=== PATIENT | female | born 1945 | race Caucasian/White ===

== ENCOUNTER 2016-07-05 07:33 | Day surgery (SDC) | payer MEDICARE, OTHER ==
[2016-06-26 12:29] LABS: HEMATOCRIT 44.7 % (36.0-48.0)
[2016-06-26 12:36] LABS: PARTIAL THROMBO TIME 25.8 SEC (22.5-37.2)
--- NOTE | ~2016-07-05 | OP ---
Record Of Operation [facility] [address] [place]. 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 PROCEDURE PERFORMED: 1. Right deep lobe parotidectomy with parapharyngeal space dissection. 2. Transposition of right cranial nerve 7. SURGEON: Ney Arroyo M.D. RESTAURANT INSPECTOR: Rickie Thompson. ANESTHESIA: General. COMPLICATIONS: None. CONDITION: Stable to recovery. 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 Risks, benefits, and alternatives to excision were explained and she agreed. PROCEDURE IN DETAIL: The patient was identified in preoperative holding and taken back to the operating room and placed supine on the operating room table. General anesthesia was established. A time-out was called, and the patient and procedure were confirmed. A Eliazar incision was marked in the right preauricular crease and infiltrated subcutaneously with 3 mL of 1% lidocaine with 1:100,000 epinephrine. The nerve monitoring electrodes were placed in the gaurav orbicularis oculi and connected to the monitor and the tap test was positive. She was prepped and draped in the standard fashion for the operation. Using 2.5x loupe magnification and headlight illumination, the operation commenced. A 15 blade was used to make the skin incision. Subcutaneous flaps were elevated over the parotid in the upper neck. The flaps were retracted with hook retractors. The great auricular nerve was identified and the posterior branch was dissected out while the tail of parotid was mobilized off the sternocleidomastoid muscle. We identified the tragal pointer superiorly and the digastric muscle inferiorly and dissected the tissues in between these two landmarks to identify the facial nerve exiting the stylomastoid foramen in its normal anatomic position. The nerve was stimulated with the probe and she had excellent response in the eye and lip. Following this, we dissected the inferior division of the parotid gland exposing the lower division along the angle of mandible. The lower division was then isolated and transposed superiorly to allow access to the parapharyngeal space. This required ligating the facial artery with two medium hemoclips. We then transected the stylomandibular ligament. This provided excellent access to the parapharyngeal space. An [employer] Record Of Operation [place] [id number] [facility] [place]. [address] NAME: HUBERT TRIPLETT : 49 STATUS : REG [facility] [place] PAT#: [id number] AGE: 70 ADM/REG DATE : 07/05/16 MR#: [id number] REPORT SERV DATE: 07/05/16 DICTATED BY: NEY ARROYO DATE: 07/05/16 REPORT STATUS : Draft TRANSCRIBED BY: ANISHA DATE: 07/05/16 retractor was placed under the angle of the mandible to elevate it and the superior aspect of the artery was retracted over the parotid gland and this was tracked into the parapharyngeal space. A combination of hemostats, suction, and Kittner elevators were used to bluntly dissect the tumor from the right parapharyngeal space. Once it was excised, it was sent for frozen section. Frozen section confirmed benign mixed tumor. The wound was then irrigated copiously with saline. Bleeding controlled with bipolar cautery. Nerve stimulator used to stimulate the facial nerve and it had activity in all branches. The wound was closed in layers using 3-0 Vicryl in the platysma and deep subcutaneous tissues and then Dermabond in the preauricular space, and a 6-0 fast-absorbing in the neck, followed by Steri-Strips. A 7-[place]ib[place]ian round fully perforated drain was placed as well and secured with 3-0 Vicryl suture. The patient was then awakened and taken to recovery in stable condition. PH/MODL Ney Arroyo M.D. / [id number] CC: Jone Olmstead M.D.
[~2016-07-05 07:33] MED LIST: *DENIES
== END 2016-07-05 15:17 | disposition home or self-care (01) ==
LOC: SDC 07:33
PROVIDERS: Specialist
PROC: 00S Central Nervous System and Cranial Nerves, Reposition (ICD-10-PCS; 2016-07-05)
PROC: 0CBB0ZZ Excision of Right Parotid Duct, Open Approach (ICD-10-PCS; principal; 2016-07-05 08:00)
DX: D11.0 Benign neoplasm of parotid gland (principal); L71.9 Rosacea, unspecified; Z98.82 Breast implant status; Z98.51 Tubal ligation status; Z88.5 Allergy status to narcotic agent; Z88.8 Allergy status to other drugs, medicaments and biological substances; Z90.721 Acquired absence of ovaries, unilateral; Z90.89 Acquired absence of other organs; Z90.49 Acquired absence of other specified parts of digestive tract; Z98.890 Other specified postprocedural states
CPT/HCPCS: 85014; 85018; 85730; 88307; 88309; 88331; 93005; A9270-GY; J0690; J2250; J2370; J2405; J2710; J3010